=== PATIENT | female | born 2000 | race African-American/Black ===

== ENCOUNTER 2021-11-14 22:32 | Emergency (ER) | payer MEDICAID ==
[~2021-11-14] VITALS: Ht 157.5 cm; Wt 80.2 kg
[2021-11-15] MEDS ORDERED: IBUPROFEN 600MG TABLET PO ONE (01:15)
[2021-11-15] MEDS ORDERED: NIRM1TAB PO (04:34)
[2021-11-15] MEDS ORDERED: IBUP-2029 MT (04:34)
[2021-11-15 04:56] VITALS: BP 135/86
== END 2021-11-15 04:58 | disposition home or self-care (01) ==
LOC: ER 22:32
DX: R69 Illness, unspecified (principal); Z59.00 Homelessness unspecified; Z20.822 Contact with and (suspected) exposure to COVID-19
CPT/HCPCS: 81025; 87426; 99283; C9803

== ENCOUNTER 2022-07-02 15:11 | Emergency (ER) | payer MEDICAID, OTHER ==
[~2022-07-02] VITALS: Ht 157.5 cm; Wt 70.0 kg
[~2022-07-02 15:11] MED LIST: IBUP-2029 MT; NIRM1TAB PO
[2022-07-02 15:13] VITALS: BP 154/92
[2022-07-02 19:44] LABS: CHLORIDE 110 mEq/L (98-107)
[2022-07-02 19:45] LABS: BASOPHILS % 0.9 % (0.0-2.0); EOSINOPHILS % 0.9 % (0.0-5.0); HEMOGLOBIN. 13.1 g/dL (12.0-16.0); LYMPHOCYTES % 20.6 % (20.0-50.0); MEAN CORPUSCULAR HEMOGLOBIN 28.7 pg (28.0-32.0); MEAN CORPUSCULAR VOLUME 85.5 fL (81.0-99.0); MEAN PLATELET VOLUME 11.7 fl (7.4-10.4); MONOCYTES % 3.7 % (2.0-8.0); NEUTROPHILS % 73.9 % (40.0-76.0); PLATELET 219 x1000/uL (130-400); RED BLOOD CELL COUNT 4.56 mill/uL (4.2-5.4)
[2022-07-02 19:52] LABS: B-HCG QUANTITATIVE < 1 mIU/mL (<3)
== END 2022-07-02 20:20 | disposition home or self-care (01) ==
LOC: ER 15:11
DX: N94.9 Unspecified condition associated with female genital organs and menstrual cycle (principal)
CPT/HCPCS: 36415; 80053; 81025; 84702; 85025; 86850; 86900; 99283